=== PATIENT | male | born 1945 | race Caucasian/White ===

== ENCOUNTER 2016-12-01 23:04 | Inpatient (IN) | payer MEDICARE, BC ==
--- NOTE | ~2016-12-01 | HP ---
History And Physical [place] [id number] [place]. [address] NAME: GIOVANNI SMITH SR : 47 STATUS : ADM IN [facility]#: [id number] AGE: 71 ADM/REG DATE : 12/02/16 MR#: [id number] REPORT SERV DATE: 12/02/16 DICTATED BY: LAYTON HARMAN DATE: 12/02/16 REPORT STATUS : Draft TRANSCRIBED BY: MODKatie DATE: 12/02/16 DATE OF ADMISSION: 12/02/2016 POINT OF ENTRY: [facility] Emergency Department. PRIMARY CORRESPONDENCE ANALYST: Berkley Miner M.D. of [facility]. PRIMARY TRANSPLANT PHYSICIAN: Francis Avendano M.D. of also [facility]. CHIEF COMPLAINT: Weakness, subjective fevers. HISTORY OF PRESENT ILLNESS: Mr. Smith is a 71-year-old gentleman with a history of chronic kidney disease status post donor kidney transplantation, insulin-dependent diabetes mellitus type 2, hypertension, hyperlipidemia, coronary artery disease, who presents to the emergency department today with reports of weakness and subjective fevers. The patient states that he has had profound weakness for the past few weeks. Occasionally, he will feel better, but then revert back to troubles with just diffuse weakness. also reports that he has had a very poor appetite and poor oral intake over the past few weeks as well. Beginning a few days ago he started to notice some subjective fevers and chills, but did not actually checked his temperature with a thermometer. He denies any chest pain, palpitations, shortness of breath, cough, sputum production, abdominal pain, vomiting, diarrhea, constipation, dysuria, melena, hematochezia, or hemoptysis. He also does report some nausea. The patient states that he underwent preoperative evaluation at [facility] a little over a week ago in anticipation of debridement of chronic wound on his right heel. At that time, presumably his vitals and labs were unremarkable as they were not notified of any abnormalities. The patient is scheduled to undergo debridement of chronic right heel wound some time next week in [facility]. Initial evaluation in the emergency department was notable for a fever of 100.7 degrees Fahrenheit despite Tylenol and recheck is now 101.0 degrees Fahrenheit, his pulse is in the 70s to 80s. Blood pressure is within normal limits. White count is normal for 15,700. Lactic acid is elevated at 3.2, BUN is 28, creatinine 1.98 with an unknown baseline. His urinalysis is positive for urinary tract infection. CT of the abdomen and pelvis was unremarkable. The patient was given IV cefepime and IV fluids, and admitted to the Hospitalist Service. REVIEW OF SYSTEMS: Comprehensive review of system otherwise negative unless listed in history of present illness. PREVIOUS MEDICAL HISTORY: History And Physical [address] [address] NAME: GIOVANNI SMITH SR : 47 STATUS : ADM IN [facility]#: [id number] AGE: 71 ADM/REG DATE : 12/02/16 MR#: [id number] REPORT SERV DATE: 12/02/16 DICTATED BY: LAYTON HARMAN DATE: 12/02/16 REPORT STATUS : Draft TRANSCRIBED BY: KERMIT DATE: 12/02/16 1. Chronic kidney disease, status post donor kidney transplantation on Gengraf, CellCept, and chronic prednisone. 2. Insulin-dependent diabetes mellitus type 2. 3. Hypertension. 4. Hyperlipidemia. 5. Coronary artery disease with prior coronary artery bypass grafting. SURGICAL HISTORY: 1. Right total hip. 2. Coronary artery bypass grafting. 3. donor kidney transplantation. 4. Right transmetatarsal amputation. ALLERGIES: NO KNOWN DRUG ALLERGIES. HOME MEDICATIONS: 1. Aspirin 81 mg daily. 2. Vitamin D 2000 units daily. 3. Gengraf 25 mg b.i.d. 4. Diltiazem XR 100 mg daily. 5. Docusate 100 mg b.i.d. 6. Insulin sliding scale. 7. Levemir 25 units b.i.d. 8. Metformin 1000 mg q.h.s. 9. Metformin 500 mg q.a.m. 10.Lopressor 25 mg q.a.m. 11.Lopressor 50 mg q.h.s. 12.CellCept 1 g b.i.d. 13.Prednisone 5 mg daily. 14.Ranitidine 150 mg b.i.d. 15.Crestor 20 mg q.h.s. SOCIAL HISTORY: He denies any tobacco, alcohol, or illicits. 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 FAMILY HISTORY: Mother with diabetes, coronary artery disease. Father with hypertension. Siblings with diabetes and hypertension. LABS AND IMAGIN. White count is 15.7, hemoglobin is 11.4, hematocrit is 36.2, platelet count is 232, and INR 1.2. 2. Sodium is 136, potassium is 3.3, chloride is 102, carbon dioxide is 23, BUN is 28, creatinine is 1.98, glucose is 154, calcium is 8.9, protein is 6.2, albumin is 2.5, bilirubin is 0.8, ALT is 13, AST is 16, and alkaline phosphatase is 71. 3. Lactic acid is 3.2. 4. Urinalysis: Spec gravity is 1.024 cloudy with moderate leukocyte esterase with 7 red and greater than 182 white blood cells per high-powered field with many bacteria. History And Physical [address] [address] NAME: GIOVANNI SMITH : 47 STATUS : ADM IN [facility]#: [id number] AGE: 71 ADM/REG DATE : 12/02/16 MR#: [id number] REPORT SERV DATE: 12/02/16 DICTATED BY: LAYTON HARMAN DATE: 12/02/16 REPORT STATUS : Draft TRANSCRIBED BY: KERMIT DATE: 12/02/[address] scan of the abdomen and pelvis is unremarkable. Abdominopelvic CT done show a nonobstructive nephrolithiasis in the transplanted kidney. 6. Chest x-ray per my review shows no acute cardiopulmonary abnormality. PHYSICAL EXAMINATION: VITAL SIGNS: Temperature is 100.7 degrees Fahrenheit, pulse is 72, respirations 16, saturating 94% on room air, and blood pressure 136/63. On recheck, temperature is now 101.0, pulse of 87, blood pressure 138/63. GENERAL: The patient is awake and alert, in no acute distress. Resting comfortably in bed. He is a well-developed, well-nourished, elderly male. is at bedside. HEENT: Atraumatic and normocephalic. Moist mucous membranes. Pupils are equal, round, reactive to light and accommodation. Extraocular eye movements are intact. No scleral icterus. NECK: No jugular venous distention. No carotid bruits. CARDIAC: Regular rate and rhythm. No murmurs or gallops. Normal S1, S2. LUNGS: Clear to auscultation bilaterally. No wheezes, rhonchi, or crackles. ABDOMEN: Obese, soft, nontender, and nondistended with good bowel sounds. No rebound, guarding, or rigidity. EXTREMITIES: Warm and well perfused with no cyanosis, clubbing or edema. He is status post right transmetatarsal amputation. The patient has a chronic dry gangrenous heel wound with no obvious superinfection. SKIN: Warm and dry except for noted above. PSYCH: Affect appropriate. NEURO: Alert and oriented x3. Cranial nerves 2 through 12 grossly intact. Speech is normal. Gait not assessed. ASSESSMENT AND PLAN: Mr. Smith is a 71-year-old gentleman, status post donor kidney transplantation on chronic immunosuppression, who presents with subjective fevers and chills as well as weakness and found to have evidence of a urinary tract infection with underlying sepsis. PROBLEM LIST: 1. Urinary tract infection. 2. Sepsis. 3. Chronic immunosuppression. 4. Weakness. 5. Acute kidney injury versus chronic kidney disease, stage 3. 6. Hypokalemia. 7. Right lower extremity wound. 8. Insulin-dependent diabetes mellitus type 2. PLAN: 1. Urinary tract infection with sepsis. We will follow up blood and urine cultures. We will place the patient on broad-spectrum antibiotics of IV cefepime and vancomycin given his immunosuppression as well as previous hospitalizations and high risk history. We will try to obtain records from [facility] to see if the patient has any previous culture data that may guide our antibiotic selection further. History And Physical [address] [address] NAME: GIOVANNI SMITH SR : 47 STATUS : ADM IN [facility]#: [id number] AGE: 71 ADM/REG DATE : 12/02/16 MR#: [id number] REPORT SERV DATE: 12/02/16 DICTATED BY: LAYTON HARMAN DATE: 12/02/16 REPORT STATUS : Draft TRANSCRIBED BY: KERMIT DATE: 12/02/16 2. Status post donor kidney transplantation on chronic immunosuppression. We will consult Nephrology for assistance. Try to obtain outside records from [facility]. 3. Acute kidney injury versus chronic kidney disease, stage 3. Unknown baseline at this time. Again try to obtain other records, Nephrology consultation, checking urine lytes. We will also check a renal transplant ultrasound, but CT did not show any evidence of any obstruction at this time. 4. Weakness likely secondary to the above medical issues. We will re-evaluate with IV fluids, and treatment of underlying infection. 5. Insulin-dependent diabetes mellitus type 2. Continue the patient's home long-acting insulin. Place on level 2 sliding scale. Check a hemoglobin A1c. 6. Right lower extremity wound. I did not appreciate any active evidence of superimposed infection. We will consult Wound Care for assistance. 7. DVT prophylaxis. Heparin subcu. CODE STATUS: The patient wished to be full code. JCB/MODL Layton Harman MD / [id number] CC: MD Mandy Chu M.D.
--- NOTE | ~2016-12-01 | CN ---
Consultation Report [facility] [address] [place]. [address] NAME: BOB SMITH SR : 47 STATUS : ADM IN PAT#: [id number] AGE: 71 ADM/REG DATE : 12/02/16 MR#: [id number] REPORT SERV DATE: 12/04/16 DICTATED BY: SASHA REECE DATE: 12/04/16 REPORT STATUS : Draft TRANSCRIBED BY: MODL DATE: 12/04/16 INFECTIOUS DISEASE CONSULTATION DATE OF CONSULTATION: 12/04/2016 REASON FOR CONSULTATION: UTI with sepsis in a renal transplant patient. HISTORY OF PRESENT ILLNESS: This is a 71-year-old man, with a history of chronic kidney disease, for which he underwent a donor kidney transplant over 10 years ago I believe. He also has diabetes, hypertension, hyperlipidemia, coronary artery disease, and a history of a right total hip arthroplasty. The patient was admitted to the hospital on 12/01/2016, complaining of two weeks of weakness and along with some anorexia. A few days prior to admission, he also developed some fevers and chills. He had no voiding symptoms. On evaluation, he was found to have a fever of 100.7, white blood cell count of 15.7, and marked pyuria on urinalysis. The patient underwent CT scan of the abdomen and pelvis without IV contrast which was unremarkable other than a very small nonobstructing calculus of the left lower pole calyx. It should be noted that he does have a history previously of more significant stones in the transplant kidney which were treated. The patient was started on empiric antibiotics with cefepime. One of two blood cultures came back positive for gram-negative brennan and his urine culture also grew gram-negative brennan which has now been identified as Klebsiella pneumoniae, and is quite sensitive. The patient has had normalization of his white blood cell count. He did have a low-grade fever of 100.5 yesterday, but otherwise has been afebrile for the last 36 hours. He does feel better in general. Denies any nausea, vomiting, diarrhea, chest pain, or shortness of breath. He denies any pain in the area of his transplant kidney, or abdominal pain, or flank pain. PAST MEDICAL HISTORY: As mentioned above. In addition, he has a history of an infection some years ago which required six weeks of home IV antibiotics through a port. I am not sure of the details of that. He has also had a right transmetatarsal amputation and more recently, has developed a chronic wound on his right heel for which he was going to undergo debridement in [place] soon. ALLERGIES: NONE. PRESENT MEDICATIONS: Aspirin, Lipitor, vitamin D, cyclosporine, Cardizem CD, Colace, Pepcid, subcutaneous heparin, insulin sliding scale, Lopressor, CellCept, prednisone 5 mg daily, and Levemir. 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 His is here in the room with him. Nonsmoker and nondrinker. FAMILY HISTORY: Notable for diabetes and hypertension. REVIEW OF SYSTEMS: Consultation Report [address] [place]. [address] NAME: BOB SMITH SR : 47 STATUS : ADM IN [facility]#: [id number] AGE: 71 ADM/REG DATE : 12/02/16 MR#: [id number] REPORT SERV DATE: 12/04/16 DICTATED BY: SASHA REECE DATE: 12/04/16 REPORT STATUS : Draft TRANSCRIBED BY: KERMIT DATE: 12/04/16 As outlined above. The rest of the 10-point review of systems are negative. PHYSICAL EXAMINATION: VITAL SIGNS: The patient weighs 83 kg. Presently afebrile. Maximum temperature has been 101.3, pulse 62, respiratory rate 14. He is normotensive. HEAD AND NECK: Extraocular movements are intact. The oral cavity clear. No thrush. LUNGS: Clear to auscultation. CARDIAC: Regular rate and rhythm. Normal S1 and S2 without murmur, gallop, or rub. ABDOMEN: Shows active bowel sounds. Soft and nontender. Including no tenderness over the transplant kidney area. EXTREMITIES: Show no significant edema. The right heel has a chronic appearing wound with some slough, with surrounding ink discoloration from preoperative preparations. No surrounding evidence of cellulitis. The patient has a peripheral IV without phlebitis. SKIN: Without rash. NEUROLOGIC: Exam shows him to be alert and oriented and in no acute distress. LABORATORY STUDIES: White blood cell count today 6.8, hemoglobin 10.0, platelets 182, creatinine is 1.49, I not sure what his baseline is, but his creatinine on admission was 1.98. Albumin 1.8. Liver function tests were normal on admission. Microbiology studies are as outlined above. The patient also had a renal ultrasound which was unremarkable and underwent MRI scan of his right foot without IV contrast which showed skin defect over the calcaneus, with underlying bone marrow and fat pad edema, compatible with chronic inflammation, but no evidence to strongly suggest osteomyelitis. IMPRESSION: Klebsiella sepsis, secondary to pyelonephritis in a patient with renal transplant. The isolate fortunately is very sensitive to antibiotics. The patient also has a total hip arthroplasty. The patient has a chronic right heel wound and I doubt underlying osteomyelitis. PLAN: 1. We will change antibiotics today to IV Ancef. 2. Anticipate discharge in a couple of days on oral quinolone therapy through 12/17/2016. 3. Discontinue Diaz catheter soon. 4. He will follow up with his providers in [place] for the heel issue. BENRABE/KERMIT Sasha Reece M.D. / [id number] CC: Consultation Report [address] [address] NAME: BOB SMITH : 47 STATUS : ADM IN [facility]#: [id number] AGE: 71 ADM/REG DATE : 12/02/16 MR#: [id number] REPORT SERV DATE: 12/04/16 DICTATED BY: SASHA REECE DATE: 12/04/16 REPORT STATUS : Draft TRANSCRIBED BY: MODKatie DATE: 12/04/16 Bob Yarbrough Jr, MD Siobhan Duff, M.D.
--- NOTE | ~2016-12-01 | CN ---
Consultation Report [facility] [address] [place]. [address] NAME: GIOVANNI SMITH SR : 47 STATUS : ADM IN PAT#: [id number] AGE: 71 ADM/REG DATE : 12/02/16 MR#: [id number] REPORT SERV DATE: 12/02/16 DICTATED BY: DATE: REPORT STATUS : Draft TRANSCRIBED BY: MODL DATE: 12/02/16 DATE OF CONSULTATION: REASON FOR CONSULTATION: Acute kidney injury. HISTORY OF PRESENT ILLNESS: Mr. Smith is a 71-year-old white male with a donor renal transplant from 2007, [facility], follows with Dr. Miner for nephrology at [facility], presented to the hospital with fevers that had been going for several days. Denied any dysuria, but did have nausea and decreased p.o. intake. No cough or congestion. No shortness of breath. No problems with edema. He does have a chronic right foot wound, has a previous TMA to that side, but there were plans for skin graft next week at [facility]. He presented to the hospital with a creatinine of 1.9 and according to the , she feels like his baseline creatinine is around 0.8, and we have been asked to see him in consultation. He is maintained after transplant on prednisone, CellCept, and cephalosporin. PAST MEDICAL HISTORY: CKD, renal transplant in 2007 at [facility], coronary artery disease with bypass in 1999, diabetes, hypertension, hyperlipidemia, chronic right heel wound, previous right TMA. ALLERGIES: NONE. SOCIAL HISTORY: He is . No tobacco, alcohol, or illicit drug use. FAMILY MEDICAL HISTORY: Negative for end-stage renal disease. Positive for diabetes and hypertension. MEDICATIONS: At the time of consultation, Maxipime, aspirin, Lipitor, vitamin D, Gengraf, Cardizem, Colace, Pepcid, heparin, NovoLog, Lopressor, CellCept, prednisone, and Levemir. REVIEW OF SYSTEMS: 12-point review of systems obtained and negative with the exception that in the HPI. PHYSICAL EXAMINATION: VITAL SIGNS: Temp 100.3, blood pressure 141/64, pulse 89, respiratory rate 18, O2 sats 92%. GENERAL: This is a chronically ill-appearing elderly white male. He is awake, alert, and oriented, answers questions appropriately. HEENT: Normocephalic, atraumatic. Conjunctivae clear. Sclerae anicteric. Oral mucosa is dry. NECK: Supple. Carotids are brisk. Neck veins flat. No lymphadenopathy. RESPIRATIONS: Even and unlabored. Breath sounds clear to auscultation. HEART: Rate is regular. No murmur, rub, or gallop. ABDOMEN: Soft, nontender with palpable transplanted kidneys, right lower quadrant without tenderness. No CVA tenderness. BACK: Within normal limits. EXTREMITIES: No edema, cyanosis, or clubbing. Consultation Report [place] [id number] [place]. [address] NAME: GIOVANNI SMITH SR : 47 STATUS : ADM IN PAT#: [id number] AGE: 71 ADM/REG DATE : 12/02/16 MR#: [id number] REPORT SERV DATE: 12/02/16 DICTATED BY: DATE: REPORT STATUS : Draft TRANSCRIBED BY: MODKatie DATE: 12/02/16 SKIN: He has a dressing to the right foot, clean, dry, and intact. No unusual rash or skin lesions. NEURO: Generalized weakness. No focal deficits. Mood and affect, flat but appropriate. PERTINENT LABS AND X-RAYS: He had a renal ultrasound that was negative. His urinalysis on presentation was with many bacteria, blood, and greater than 500 mg/dL of protein, large amount of white blood cells with white blood cell clumps. Lactate 1.5. Procalcitonin 11.8. Chest x-ray, negative. He has no labs of today, but creatinine yesterday of 1.98 with BUN of 28, potassium 3.3, sodium 136, albumin 2.5. LFTs are unremarkable. Labs yesterday with WBCs 26148, H and H of 11 and 36, platelets 232,000. IMPRESSION: 1. Acute kidney injury. 2. donor renal transplant in 2007, [facility]. 3. Urinary tract infection. 4. Fever. 5. Nausea, poor p.o. intake. 6. Hypertension. 7. Diabetes. PLAN: Acute kidney injury, most likely due to volume depletion in the setting of his recent nausea and decreased p.o. intake, currently on antibiotics. Urine cultures and blood cultures pending. Agree with IV fluids. We will follow labs along with you. Thank you for the consultation. NICK BALBINA Funes / [id number] CC: MD Mandy Chu M.D.
--- NOTE | ~2016-12-01 | DS ---
Discharge Summary [place] [id number] [facility] [place]. [address] NAME: BOB SMITH SR : 47 STATUS : DIS IN PAT#: [id number] AGE: 71 ADM/REG DATE : 12/02/16 MR#: [id number] REPORT SERV DATE: 12/07/16 DICTATED BY: JR. YARBROUGH WILLIAM JOHN DATE: 12/06/16 REPORT STATUS : Draft TRANSCRIBED BY: MODL DATE: 12/06/16 ADMISSION DATE: 12/02/2016 DISCHARGE DATE: 12/06/2016 DISCHARGE DIAGNOSES: 1. Klebsiella urinary tract infection with bacteremia in the presence of metal prosthetic devices. 2. Chronic immunosuppression for renal transplantation. 3. Status post renal transplant. 4. Insulin-requiring diabetes mellitus. 5. Acute kidney injury, which is resolved. 6. Chronic right lower extremity wound. OPERATIONS, PROCEDURES, AND TREATMENTS: Include: 1. Chest x-ray done 12/01/2016 which showed acute left humeral neck fracture. No acute process in the chest. 2. CT of the abdomen and pelvis done 12/01/2016, which showed unremarkable noncontrast CT of the transplanted kidney with in the right lower quadrant abdomen with the exception nonobstructing curvilinear 11 x 5 mm calculus in lower cecile. There are markedly atrophic bilateral shawnee kidneys. There is mild bibasilar subsegmental atelectasis and status post right total hip arthroplasty. 3. MRI of the foot which showed skin defect over the calcaneus with underlying bone marrow and fat pad edema compatible with chronic inflammation. 4. Renal ultrasound showed no hydronephrosis or perinephric fluid collection. 5. Hip x-ray done 12/03/2016 showed no acute bony abnormality in the left hip. 6. Right hip x-ray with similar findings. CONSULTING PHYSICIANS: 1. Nephrology service. Etiology of his kidney injury was from hypovolemia. 2. Dr. Tripp Reece of Infectious Disease. DISCHARGE MEDICATIONS: Include: 1. Aspirin 81 mg orally daily. 2. Cyclosporine 25 mg orally twice a day. 3. Vitamin D 2000 units daily. 4. Diltiazem 180 mg orally daily. 5. Colace 100 mg orally twice a day. 6. Ranitidine 150 mg orally twice a day. 7. Levemir insulin 25 units twice a day. 8. Sliding scale Humalog insulin. 9. CellCept 500 mg orally twice a day. 10.Metoprolol 25 mg orally daily, 50 mg at night. 11.Prednisone 5 mg orally daily. 12.Hydralazine 10 mg three times a day. 13.Crestor 20 mg orally daily. 14.Metformin 500 mg orally every morning, 1000 at night. Discharge Summary [address] [address] [place]. [address] NAME: BOB SMITH : 47 STATUS : DIS IN PAT#: [id number] AGE: 71 ADM/REG DATE : 12/02/16 MR#: [id number] REPORT SERV DATE: 12/07/16 DICTATED BY: JR. YARBROUGH WILLIAM JOHN DATE: 12/06/16 REPORT STATUS : Draft TRANSCRIBED BY: KERMIT DATE: 12/06/16 15.Cipro 500 b.i.d. for 11 days. 16.Phenergan 12.5 mg every eight hours as needed. HOSPITAL COURSE: The patient is a 71-year-old gentleman with a history of chronic kidney disease, status post donor kidney transplant who presented to emergency room with subjective fevers and weakness on 12/02/2016. The patient said that he had profound weakness over the past few days. Occasionally he would feel better and then revert back to the weakness. The reported that he had very poor appetite with poor oral intake. Initial exam showed temperature 100.7, heart rate 72, respiratory rate 16, blood pressure 136/63. Exam was mostly unremarkable. His urinalysis did show evidence of pyuria. The patient was admitted to the hospital for a urinary tract infection in the presence of a transplanted kidney on chronic immunosuppressive therapy. He was placed empirically on IV cefepime and vancomycin. Cultures were obtained. The patient grew multi-sensitive Klebsiella from his urine culture, also had a positive blood culture. Dr. Tripp Reece of Infectious Disease saw the patient. Given the presence of chronic immunosuppression and metallic joint prostheses, prolonged course was recommended. The Klebsiella was sensitive to Cipro. The patient will be discharged home with 11 additional days of ciprofloxacin. Regarding the chronic right lower extremity wound, this is followed outpatient and would defer to their judgment. Regarding the acute kidney injury, this resolved with IV fluid hydration. The patient will be discharged home today on 12/06/2016 in good condition for discharge. DIET: ADA diet. ACTIVITY: As tolerated. FOLLOWUP: The patient will follow up with his primary care provider, Dr. Garcia, as well as Wound Center as previously arranged. For discharge exam and laboratory, please see daily progress note. This discharge took 35 minutes for patient encounter, coordination care, and documentation. DICTATED BY: Bob Yarbrough Jr, MD WJF/KERMIT Bob Yarbrough Jr, MD / [id number] Discharge Summary [address] [address] NAME: BOB SMITH : 49 STATUS : DIS IN [facility]#: [id number] AGE: 71 ADM/REG DATE : 12/02/16 MR#: [id number] REPORT SERV DATE: 12/07/16 DICTATED BY: JR. YARBROUGH WILLIAM JOHN DATE: 12/06/16 REPORT STATUS : Draft TRANSCRIBED BY: KERMIT DATE: 12/06/16 CC: Bob Yarbrough Jr, MD Siobhan Duff, M.D.
[2016-12-01] MEDS ORDERED: GENGRAF25 MG PO (23:10)
[2016-12-01] MEDS ORDERED: DSS PO (23:10)
[2016-12-01] MEDS ORDERED: P5 PO (23:10)
[2016-12-01] MEDS ORDERED: CELLCEPT5 PO (23:10)
[2016-12-01] MEDS ORDERED: DILT-XR180 MG PO (23:11)
[2016-12-01] MEDS ORDERED: LOP25 PO (23:11)
[2016-12-01] MEDS ORDERED: CRESTOR20 MG PO (23:11)
[2016-12-01] MEDS ORDERED: ZANTAC150 MG PO (23:11)
[2016-12-01] MEDS ORDERED: LOP50 PO (23:12)
[2016-12-01] MEDS ORDERED: GLUCPH PO (23:12)
[2016-12-01] MEDS ORDERED: HALF81 PO (23:12)
[2016-12-01] MEDS ORDERED: GLUCOPHAGE1000 MG PO (23:12)
[2016-12-01] MEDS ORDERED: LEVEMFLXPN SC (23:13)
[2016-12-01] MEDS ORDERED: NOVOLOG SC (23:13)
[2016-12-01] MEDS ORDERED: VITAMIN D2000 UNIT PO (23:13)
[2016-12-01 23:33] LABS: BASOPHILS 0 %; EOSINOPHILS 0 %; ER CBC TAT 0 Hrs 11 Mins; HEMATOCRIT 36.2 % (40.0-51.0); HEMOGLOBIN 11.4 g/dL (13.6-17.8); IMMATURE GRANULOCYTES 0.3 %; LYMPHOCYTES 7.9 %; LYMPHOCYTES ABSOLUTE 1.23 10/3/uL (0.67-4.30); MEAN CORPUS HGB CONC 31.5 g/dL (32.0-36.0); MEAN CORPUSCULAR HEMOGLOB 28.1 pg (26.0-34.0); MEAN CORPUSCULAR VOLUME 89.2 fL (80-100); MEAN PLATELET VOLUME 11.6 fL (9.2-13.0); MONOCYTES 7.6 %; MONOCYTES ABSOLUTE 1.19 10/3/uL (0.21-1.20); NEUTROPHILS 84.2 %; PLATELET COUNT 232 10/3/uL (150-400); RED CELL COUNT 4.06 10/6/uL (4.7-6.1); WHITE BLOOD CELLS 15.7 10/3/uL (4.5-10.5)
[2016-12-01 23:34] LABS: A/G RATIO 0.7 (0.7-1.9); ALBUMIN 2.5 G/DL (3.5-5.0); ALKALINE PHOSPHATASE 71 U/L (45-117); BUN (BLOOD UREA NITROGEN) 28 MG/DL (6-23); CALCIUM, SERUM 8.9 MG/DL (8.5-10.4); CHLORIDE, SERUM 102 MMOL/L (96-112); CO2 (CARBON DIOXIDE) 23 MMOL/L (24-34); CREATININE 1.98 MG/DL (0.70-1.30); GFR AFRICAN AMERICAN 39 ML/MIN (>=60); GFR NON AFRICAN AMERICAN 33 ML/MIN (>=60); GLOBULIN 3.7 G/DL (2.5-4.1); GLUCOSE, SERUM 154 MG/DL (60-99); IMMATURE GRANULOCYTES ABSOLUTE 0.04 10/3/uL (0.0-0.11); MANUAL DIFF NO %; POTASSIUM, SERUM 3.3 MMOL/L (3.5-5.3); SGOT(AST) 16 U/L (5-40); SGPT(ALT) 13 U/L (5-65); SODIUM, SERUM 136 MMOL/L (135-148); TOTAL BILIRUBIN 0.8 MG/DL (0-1.2); TOTAL PROTEIN 6.2 G/DL (6.0-8.5)
[2016-12-01 23:40] LABS: INTERNATIONAL NORMAL RATI 1.2 UNITS (-); PROTIME (NOT ORD) 15.5 SEC (12.0-14.5)
[2016-12-02 00:02] LABS: BAND NEUTROPHILS 18 %; ER DIFF TAT 0 Hrs 40 Mins; LYMPHOCYTES 5 %; LYMPHOCYTES ABSOLUTE (CALC) 0.79 10/3/uL (0.67-4.30); MONOCYTES 6 %; MONOCYTES ABSOLUTE (CALC) 0.94 10/3/uL (0.21-1.20); NEUTROPHILS ABSOLUTE (CALC) 13.97 10/3/uL (2.02-8.40); PLATELET ESTIMATE ADQ (ADEQUATE); SEGMENTED NEUTROPHIL (0) 71 %; TOTAL NUCLEATED CELLS 100
[2016-12-02 00:03] LABS: BURR CELLS 1+ (3-10/OIF) (0-2/OIF); ELLIPTOCYTES 1+ (3-10/OIF) (0-2/OIF); TEARDROP SHAPED RBCS OCC (0-2/OIF)
[2016-12-02 00:53] LABS: ASCORBIC ACID (UR NOT ORDER) 40 (NEG); BILIRUBIN, URINE NEGATIVE (NEG); ER URINALYSIS TAT 0 Hrs 00 Mins; KETONE, URINE NEGATIVE (NEG); LEUKOCYTE ESTERASE(NOT OR MOD (NEG); NITRITE (URINE) NEG (NEG)
[2016-12-02 00:54] LABS: WBC (NOT ORDERED) (RFLEX) > 182 (0-5)
[2016-12-02 12:02] LABS: MEAN CORPUS HGB CONC 31.8 g/dL (32.0-36.0); MEAN CORPUSCULAR HEMOGLOB 27.7 pg (26.0-34.0); MEAN PLATELET VOLUME 10.7 fL (9.2-13.0); PLATELET COUNT 178 10/3/uL (150-400); RBC DISTRIBUTION WIDTH 15.1 % (12.0-16.0); RED CELL COUNT 3.61 10/6/uL (4.7-6.1)
[2016-12-02 12:03] LABS: HEMATOCRIT 31.4 % (40.0-51.0); MANUAL DIFF YES %
[2016-12-02 12:13] LABS: BUN (BLOOD UREA NITROGEN) 29 MG/DL (6-23); CHLORIDE, SERUM 105 MMOL/L (96-112); CO2 (CARBON DIOXIDE) 22 MMOL/L (24-34); CREATININE 1.69 MG/DL (0.70-1.30); GFR AFRICAN AMERICAN 47 ML/MIN (>=60); GFR NON AFRICAN AMERICAN 41 ML/MIN (>=60); PHOSPHORUS, SERUM 2.5 MG/DL (2.5-4.5); POTASSIUM, SERUM 3.1 MMOL/L (3.5-5.3); SODIUM, SERUM 139 MMOL/L (135-148)
[2016-12-02 12:14] LABS: ALBUMIN 1.9 G/DL (3.5-5.0); CALCIUM, SERUM 7.8 MG/DL (8.5-10.4); GLUCOSE, SERUM 92 MG/DL (60-99)
[2016-12-02 12:39] LABS: BAND NEUTROPHILS 19 %; LYMPHOCYTES 6 %; LYMPHOCYTES ABSOLUTE (CALC) 0.66 10/3/uL (0.67-4.30); MONOCYTES 5 %; MONOCYTES ABSOLUTE (CALC) 0.55 10/3/uL (0.21-1.20); NEUTROPHILS ABSOLUTE (CALC) 9.79 10/3/uL (2.02-8.40); PLATELET ESTIMATE ADQ (ADEQUATE); SEGMENTED NEUTROPHIL (0) 70 %; TOTAL NUCLEATED CELLS 100
[2016-12-02 12:40] LABS: POLYCHROMASIA 1+ (2-5/OIF) (0-1/OIF); TOXIC GRANULATION 1+
[2016-12-03 07:18] LABS: BASOPHILS 0 %; EOSINOPHILS 0.1 %; EOSINOPHILS ABSOLUTE 0.01 10/3/uL (0.0-0.53); HEMOGLOBIN 11.2 g/dL (13.6-17.8); IMMATURE GRANULOCYTES 0.3 %; IMMATURE GRANULOCYTES ABSOLUTE 0.03 10/3/uL (0.0-0.11); LYMPHOCYTES 11.5 %; LYMPHOCYTES ABSOLUTE 1.19 10/3/uL (0.67-4.30); MEAN CORPUS HGB CONC 31.5 g/dL (32.0-36.0); MEAN CORPUSCULAR HEMOGLOB 27.7 pg (26.0-34.0); MEAN CORPUSCULAR VOLUME 87.9 fL (80-100); MEAN PLATELET VOLUME 11.2 fL (9.2-13.0); MONOCYTES ABSOLUTE 0.72 10/3/uL (0.21-1.20); NEUTROPHILS 81.1 %; NEUTROPHILS ABSOLUTE 8.39 10/3/uL (2.02-8.40); PLATELET COUNT 210 10/3/uL (150-400); RBC DISTRIBUTION WIDTH 15.1 % (12.0-16.0); RED CELL COUNT 4.05 10/6/uL (4.7-6.1); WHITE BLOOD CELLS 10.3 10/3/uL (4.5-10.5)
[2016-12-03 07:24] LABS: HEMATOCRIT 35.6 % (40.0-51.0); MANUAL DIFF NO %
[2016-12-03 07:29] LABS: BUN (BLOOD UREA NITROGEN) 30 MG/DL (6-23); CALCIUM, SERUM 8.4 MG/DL (8.5-10.4); CHLORIDE, SERUM 106 MMOL/L (96-112); CO2 (CARBON DIOXIDE) 19 MMOL/L (24-34); CREATININE 1.62 MG/DL (0.70-1.30); GFR AFRICAN AMERICAN 49 ML/MIN (>=60); GFR NON AFRICAN AMERICAN 43 ML/MIN (>=60); GLUCOSE, SERUM 29 MG/DL (60-99); PHOSPHORUS, SERUM 2.4 MG/DL (2.5-4.5); POTASSIUM, SERUM 3.7 MMOL/L (3.5-5.3); SODIUM, SERUM 139 MMOL/L (135-148)
[2016-12-03 07:30] LABS: ALBUMIN 1.9 G/DL (3.5-5.0)
[2016-12-04 07:16] LABS: BASOPHILS 0 %; EOSINOPHILS 0.4 %; EOSINOPHILS ABSOLUTE 0.03 10/3/uL (0.0-0.53); IMMATURE GRANULOCYTES 0.3 %; IMMATURE GRANULOCYTES ABSOLUTE 0.02 10/3/uL (0.0-0.11); LYMPHOCYTES ABSOLUTE 0.61 10/3/uL (0.67-4.30); MEAN CORPUS HGB CONC 32.2 g/dL (32.0-36.0); MEAN CORPUSCULAR HEMOGLOB 28.1 pg (26.0-34.0); MEAN CORPUSCULAR VOLUME 87.4 fL (80-100); MEAN PLATELET VOLUME 10.9 fL (9.2-13.0); MONOCYTES 8.7 %; MONOCYTES ABSOLUTE 0.59 10/3/uL (0.21-1.20); NEUTROPHILS 81.6 %; NEUTROPHILS ABSOLUTE 5.54 10/3/uL (2.02-8.40); PLATELET COUNT 182 10/3/uL (150-400); RBC DISTRIBUTION WIDTH 14.7 % (12.0-16.0); RED CELL COUNT 3.56 10/6/uL (4.7-6.1); WHITE BLOOD CELLS 6.8 10/3/uL (4.5-10.5)
[2016-12-04 07:18] LABS: HEMATOCRIT 31.1 % (40.0-51.0); MANUAL DIFF NO %
[2016-12-04 07:29] LABS: ALBUMIN 1.8 G/DL (3.5-5.0); BUN (BLOOD UREA NITROGEN) 29 MG/DL (6-23); CALCIUM, SERUM 8.1 MG/DL (8.5-10.4); CHLORIDE, SERUM 107 MMOL/L (96-112); CO2 (CARBON DIOXIDE) 22 MMOL/L (24-34); CREATININE 1.49 MG/DL (0.70-1.30); GFR AFRICAN AMERICAN 55 ML/MIN (>=60); GFR NON AFRICAN AMERICAN 47 ML/MIN (>=60); GLUCOSE, SERUM 165 MG/DL (60-99); PHOSPHORUS, SERUM 2.6 MG/DL (2.5-4.5); POTASSIUM, SERUM 3.2 MMOL/L (3.5-5.3); SODIUM, SERUM 138 MMOL/L (135-148)
[2016-12-05 06:36] LABS: CALCIUM, SERUM 8.4 MG/DL (8.5-10.4); CHLORIDE, SERUM 111 MMOL/L (96-112); CO2 (CARBON DIOXIDE) 21 MMOL/L (24-34); CREATININE 1.29 MG/DL (0.70-1.30); GFR AFRICAN AMERICAN 65 ML/MIN (>=60); GFR NON AFRICAN AMERICAN 56 ML/MIN (>=60); POTASSIUM, SERUM 3.4 MMOL/L (3.5-5.3); SODIUM, SERUM 140 MMOL/L (135-148)
[2016-12-05 06:37] LABS: BUN (BLOOD UREA NITROGEN) 23 MG/DL (6-23); GLUCOSE, SERUM 60 MG/DL (60-99)
[2016-12-06] MEDS ORDERED: APRES10B PO (11:47)
[2016-12-06] MEDS ORDERED: CIP5 PO (11:51)
[2016-12-06] MEDS ORDERED: PR12.5 PO (11:54)
[2017-01-25] MEDS ORDERED: CLARIT10 PO (22:13)
[2017-03-08] MEDS ORDERED: GENGRAF25 MG PO (12:11)
[2017-03-08] MEDS ORDERED: CELLCEPT5 PO (12:31)
[2017-03-08] MEDS ORDERED: VITAMIN D2000 UNIT PO (12:31)
[2017-03-08] MEDS ORDERED: DSS PO (12:31)
[2017-03-08] MEDS ORDERED: MULTIVIT/MIN PO (12:32)
[2017-03-08] MEDS ORDERED: LOP50 PO (12:32)
[2017-03-08] MEDS ORDERED: ZANTAC 150 PO (12:32)
[2017-03-08] MEDS ORDERED: P5 PO (12:32)
[2017-03-08] MEDS ORDERED: ASAB PO (12:32)
[2017-03-08] MEDS ORDERED: ROCEPH IV (12:34)
[2017-03-08] MEDS ORDERED: MAALOX PO (12:35)
[2017-03-08] MEDS ORDERED: ACETSUP650 PR (12:35)
[2017-03-08] MEDS ORDERED: ROBITUSS23 PO (12:36)
[2017-03-08] MEDS ORDERED: T PO (12:36)
[2017-03-08] MEDS ORDERED: ALBUTEROL0.083 % INH (12:36)
== END 2016-12-06 14:08 | disposition home health service (06) | DRG 872 ==
LOC: ER 23:04 → 1SO 12-02 01:56
PROVIDERS: Emergency Medicine; Hospitalist; Internal Medicine; Internal Medicine Infectious Disease; Internal Medicine Nephrology
DX: A41.89 Other specified sepsis (principal); N17.9 Acute kidney failure, unspecified; Z94.0 Kidney transplant status; N39.0 Urinary tract infection, site not specified; N12 Tubulo-interstitial nephritis, not specified as acute or chronic; L97.419 Non-pressure chronic ulcer of right heel and midfoot with unspecified severity; E11.22 Type 2 diabetes mellitus with diabetic chronic kidney disease; E11.649 Type 2 diabetes mellitus with hypoglycemia without coma; R65.20 Severe sepsis without septic shock; Z68.25 Body mass index [BMI] 25.0-25.9, adult; B96.1 Klebsiella pneumoniae [K. pneumoniae] as the cause of diseases classified elsewhere; I12.9 Hypertensive chronic kidney disease with stage 1 through stage 4 chronic kidney disease, or unspecified chronic kidney disease; N18.3 Chronic kidney disease, stage 3 (moderate); E87.6 Hypokalemia; N20.0 Calculus of kidney; E66.9 Obesity, unspecified; D63.1 Anemia in chronic kidney disease; R63.0 Anorexia; E78.5 Hyperlipidemia, unspecified; I25.10 Atherosclerotic heart disease of native coronary artery without angina pectoris; R29.6 Repeated falls; Z79.82 Long term (current) use of aspirin; Z79.4 Long term (current) use of insulin; Z79.84 Long term (current) use of oral hypoglycemic drugs; Z79.899 Other long term (current) drug therapy; Z95.1 Presence of aortocoronary bypass graft; Z96.641 Presence of right artificial hip joint; Z91.81 History of falling
CPT/HCPCS: 71010; 73501-RT; 73502-LT; 73502-RT; 73718-RT; 74176; 76775; 80048; 80053; 80069; 81001; 82570; 82962; 83036; 83605; 83735; 83935; 84145; 84300; 85025; 85610; 87040; 87070; 87077; 87086; 87150; 87186; 87205; 97162-GP; 99285; A9270-GY; G8978-CK-GP; G8979-CK-GP; G8980-CJ-GP; J0360; J0690; J0692; J2543; J3370; J7515